=== PATIENT | male | born 1965 | race Caucasian/White ===

== ENCOUNTER 2018-08-29 09:26 | Emergency (ER) | payer OTHER ==
[~2018-08-29] VITALS: Ht 170.2 cm; Wt 95.3 kg
[2018-08-29 09:35] VITALS: BP 158/100
--- NOTE | 2018-08-29 09:43 | PHYS DOC ---
Past History Past Medical History: No Pertinent History Smoking: Non-smoker Alcohol Use: None Drug Use: None Adult General Chief Complaint Chief Complaint: FINGER INJURY HPI HPI Patient is a 53-year-old male presents complaining of right small finger pain. 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 He is right hand dominant. There is some swelling. He also notes blood leaking from under the nail. Movement and touch make symptoms worse. Mild pain management with acetaminophen and ibuprofen. Pain is moderate in intensity. Reports his last tet anus vaccine is around 5 years ago.[] Review of Systems Review of Systems Constitutional: Denies fever or chills [] Eyes: Denies change in visual acuity, redness, or eye pain [] HENT: Denies nasal congestion or sore throat [] Respiratory: Denies cough or shortness of breath [] Cardiovascular: No chest pain or palpitations[] GI: Denies abdominal pain, nausea, vomiting, bloody stools or diarrhea [] : Denies dysuria or hematuria [] Musculoskeletal: Denies back pain, see history of present illness[] Integument: Denies rash or skin lesions [] Neurologic: Denies headache, focal weakness or sensory changes [] Endocrine: Denies polyuria or polydipsia [] All other systems were reviewed and found to be within normal limits, except as documented in this note. Physical Exam Physical Exam Constitutional: Well developed, well nourished, no acute distress, non-toxic appearance. [] HENT: Normocephalic, atraumatic, bilateral external ears normal, oropharynx moist, no oral exudates, nose normal. [] Eyes: PERRLA, EOMI, conjunctiva normal, no discharge. [] Neck: Normal range of motion, no tenderness, supple, no stridor. [] Cardiovascular:Heart rate regular rhythm, no murmur [] Lungs & Thorax: Bilateral breath sounds clear to auscultation [] Abdomen: Not examined[] Skin: Warm, dry, no erythema, no rash. [] Back: No tenderness, no CVA tenderness. [] Extremities: Right small finger shows erythema and edema of the distal phalanx. FDS, FDP, and extensor mechanisms are intact. There is subungual hematoma of approximately 50%. There is blood leaking from the distal end of the nailbed. A joint above and joined below were evaluated and were normal. The other 3 extremities show: No tenderness, no cyanosis, no clubbing, ROM intact, no edema. [] Neurologic: Alert and oriented X 3, normal motor function, normal sensory function, no focal deficits noted. [] Psychologic: Affect normal, judgement normal, mood normal. [] EKG EKG [] Radiology/Procedures Radiology/Procedures X-ray of the right small finger shows a distal finger fracture.[] Course & Med Decision Making Course & Med Decision Making Pertinent Labs and Imaging studies reviewed. (See chart for details) ED course: Patient arrived, was placed in bed, and tolerated exam well. He was transported to and from radiology with any complications. Patient washed his hands with soap and water prior to nail trephination utilizing electrocautery device. Patient tolerated procedure well. There were no complications. He had improvement of his pain with trephination. Patient was splinted and was distal neurovascularly intact after splint application. He was discharged in improved condition with all questions answered. Medical decision making: Patient has a distal small finger fracture of his right dominant hand. Given the trephination will start patient on oral antibiotics. Will also have him follow-up with orthopedic surgery. His no evidence of neuro or vascular compromise.[] Dragon Disclaimer Dragon Disclaimer This electronic medical record was generated, in whole or in part, using a voice recognition dictation system. Departure Departure: Impression: Primary Impression: Finger fracture, right Additional Impression: Subungual hematoma Disposition: 01 HOME, SELF-CARE Condition: IMPROVED Referrals: BERONICA DE LA O (PCP) Follow-up in 2 days BARBARA MCCURDY MD Patient Instructions: Finger Fracture, Subungual Hematoma Additional Instructions: Keep the splint clean and dry. Follow-up with your regular doctor in 2 days. Call the orthopedic surgeon, Dr. Rai, to arrange a time for follow-up within the next 5 days. Return to the ER if worsening pain, purulent drainage, or any other concerns. Scripts Tramadol Hcl (TRAMADOL HCL) 50 Mg Tablet 50 MG PO PRN Q6HRS PRN for PAIN, #20 TAB Prov: MANOJ QUESADA DO 08/29/18 Meloxicam (MELOXICAM) 7.5 Mg Tablet 7.5 MG PO DAILY for PAIN, #20 TAB Prov: MANOJ QUESADA DO 08/29/18 Sulfamethoxazole/Trimethoprim (BACTRIM DS TABLET) 1 Each Tablet 1 TAB PO BID for her fracture/nail trephination, #20 TAB Prov: MANOJ QUESADA DO 08/29/18 Problem Qualifiers Primary Impression: Finger fracture, right Encounter type: initial encounter Finger: little finger Fracture type: closed Phalanx: distal Fracture alignment: nondisplaced Qualified Codes: S62.666A - Nondisplaced fracture of distal phalanx of right little finger, initial encounter for closed fracture MANOJ QUESADA DO August 29, 2018 09:43
[2018-08-29] MEDS ORDERED: SULF1TAB24 PO (09:57)
[2018-08-29] MEDS ORDERED: TRAM50TA PO (09:57)
[2018-08-29] MEDS ORDERED: MELO7.5T29 PO (09:57)
--- NOTE | 2018-08-29 10:17 | RAD ---
FINGER(S) RIGHT Clinical Indication: Distal fifth finger crush mechanical injury between door frame machine. Comparison: None. Findings: There is acute traumatic nondisplaced distal tuft fracture of the fifth finger. No radiopaque foreign body is seen. No obvious soft tissue swelling. Joint spaces are maintained. Mineralization is normal. No bone erosion is seen. IMPRESSION: Acute traumatic nondisplaced distal tuft fracture of the fifth finger. Electronically signed by: Guanako Moreno MD (08/29/2018 10:14 AM) [id number]
== END 2018-08-29 10:06 | disposition home or self-care (01) ==
LOC: ER 09:26
DX: S62.636A Displaced fracture of distal phalanx of right little finger, initial encounter for closed fracture (principal); S60.151A Contusion of right little finger with damage to nail, initial encounter; W31.89XA Contact with other specified machinery, initial encounter; Y93.89 Activity, other specified; Y92.89 Other specified places as the place of occurrence of the external cause; Y99.0 Civilian activity done for income or pay
CPT/HCPCS: 11740; 29130; 73140; 99284